=== PATIENT | male | born 1960 | race Caucasian/White ===

== ENCOUNTER 2024-09-14 10:55 | Outpatient (REF) | payer BC, SELFPAY ==
--- OUTSIDE RECORDS SUMMARY | 2024-09-14 13:12 | XMS_ITS | Continuity of Care Document ---
Author Organization [facility] Address [address] [place] [phone]- Care Team Providers Care Postal Supervisor Name Role Phone Bart Hoffman DO Primary Care Physician Encounter [facility] Date(s): 07/24/24 - 08/23/24 [facility] [address] [place] [id number] Attending Physician: Eliezer Byrne Admitting Physician: Eliezer Byrne Referring Physician: Eliezer Byrne Encounter Type: Triage Allergies, Adverse Reactions, Alerts Substance Criticality Severity Reaction Reaction Severity Status ciprofloxacin Ankle pain and edema Active Immunizations Given and Recorded Vaccine Date Status Refusal Reason SARS-CoV-2(COVID-19)mRNA-LNP vac([id number]) 07/14/24 Recorded SARS-CoV-2(COVID-19)mRNA-LNP vac(unx409) 06/26/23 Recorded influenza virus vaccine, inactivated 06/19/24 Give n influenza virus vaccine, inactivated 07/31/23 Tito rded influenza virus vaccine, inactivated 05/30/22 Tito rded influenza virus vaccine, inactivated 06/06/21 Tito rded influenza virus vaccine, inactivated 06/05/20 Tito rded influenza virus vaccine, inactivated 05/25/18 Tito rded influenza virus vaccine, inactivated 05/25/17 Tito rded influenza virus vaccine, inactivated 08/06/16 Tito rded influenza virus vaccine, inactivated 08/12/15 Tito rded RSV vaccine, preF A-preF B, recombinant 09/21/23 R ecorded pneumococcal 20-valent conjugate vaccine 09/16/23 Given [id number] bivalent booster vax 06/22/22 Recorded SARS-CoV-2 (COVID-19) mRNA-1273 vaccine 12/12/21 R ecorded SARS-CoV-2 (COVID-19) mRNA BNT-162b2 vac 05/20/21 Recorded SARS-CoV-2 (COVID-19) mRNA BNT-162b2 vac 11/08/20 Recorded SARS-CoV-2 (COVID-19) mRNA BNT-162b2 vac 10/16/20 Recorded Influenza Virus Vaccine (oldterm) 06/26/19 Recorde d zoster vaccine, inactivated 09/18/18 Recorded zoster vaccine, inactivated 05/25/18 Recorded Problem List Condition Confirmation Course Effective Dates Status H ealth Status Informant Asthma Confirmed Active Balanitis Confirmed Active Benign essential hypertension Confirmed Active Benign prostatic hyperplasia Confirmed Active Coronary artery calcification seen on CT scan Confirmed Active Cellulitis of leg Confirmed Active Chronic kidney disease stage 2 Confirmed Active Renal cyst Confirmed Active 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 Dizziness Confirmed Active Fatigue Confirmed Active Gastroparesis syndrome Confirmed Active Vivi's thyroiditis Confirmed Active Hx of colonic polyp Confirmed Active Hyperlipidemia Confirmed Active Nocturnal hypoxia Confirmed Active Immunization due Confirmed Active Impotence of organic origin Confirmed Active Insomnia Confirmed Active Legal blindness [place] Confirmed Active Long-term current use of insulin Confirmed Active Necrobiosis lipoidica Confirmed Active Nonproliferative diabetic retinopathy Confirmed Active Obese class I Confirmed Active Obesity Confirmed Active Osteoarthritis of right knee Confirmed Active Well adult exam Confirmed Active Prostate cancer screening Confirmed Active Peripheral edema Confirmed Active Peripheral nerve disease Confirmed Active Spinal stenosis Confirmed Active Stasis dermatitis of right lower extremity due to peripheral venous hypertension Confirmed Active Syringomyelia Confirmed Active Type 1 diabetes mellitus Confirmed Active Diabetes type I Confirmed Active Varicose vein of leg Confirmed Active Venous insufficiency Confirmed Active Vertigo Confirmed Active Social History Social History Type Response Smoking Status Former smoker; Tobac co user in household: No entered on: 06/17/18 Sex Sex Representation Male (finding) Patient Care team information Care Team Personnel Name: Janice Horne RN Position: [facility] RN Member Role: Primary Care Nurse Name: Pati Saenz RN Position: [facility] RN Member Role: Primary Care Nurse Name: Oxana Guzman RN Position: [facility] RN Member Role: Primary Care Nurse Name: Bart Hoffman DO Position: [facility] Physician - Primary Care Member Role: PCP Address: [address] [place] [phone] Telecom: Name: Mary Quesada RN Position: [facility] RN Member Role: Primary Care Nurse Name: Belkys Swenson RN Position: [facility] ED RN W/OE and Tasks Member Role: Primary Care Nurse Care Team Related Persons Name: JASON MONTANEZ Insurance Providers Guarantor name: WILL LISSETH [facility] Plan Information #: 1 Payer: [employer] Member Number: NA Policy Number: NA Group Number: NA
--- OUTSIDE RECORDS SUMMARY | 2024-09-14 13:12 | XMS_ITS | Continuity of Care Document ---
Author Organization [facility] Address [address] [place] [address]- Care Team Providers Care Cashier Payments Received Name Role Phone Bart Hoffman DO Primary Care Physician Encounter [facility] [id number] Date(s): 07/11/24 - 09/06/24 [facility] [address] [place], [place] [address] Attending Physician: Bart Hoffman DO Referring Physician: Home Boudreaux MD Encounter Type: Pre Office Visit Allergies, Adverse Reactions, Alerts Substance Criticality Severity Reaction Reaction Severity Status ciprofloxacin Ankle pain and edema Active Immunizations Given and Recorded Vaccine Date Status Refusal Reason SARS-CoV-2(COVID-19)mRNA-LNP vac(mba209) 07/14/24 Recorded SARS-CoV-2(COVID-19)mRNA-LNP vac(uvt293) 06/26/23 Recorded influenza virus vaccine, inactivated 06/19/24 [...] ecorded pneumococcal 20-valent conjugate vaccine 09/16/23 Given [id number] bivalent booster vax 06/22/22 Recorded SARS-CoV-2 (COVID-19) mRNA-1273 vaccine 12/12/21 R ecorded SARS-CoV-2 (COVID-19) mRNA BNT-162b2 vac 05/20/21 Recorded SARS-CoV-2 (COVID-19) mRNA BNT-162b2 vac 11/08/20 Recorded SARS-CoV-2 (COVID-19) mRNA BNT-162b2 vac 10/16/20 Recorded Influenza Virus Vaccine (oldterm) 06/26/19 Recorde d zoster vaccine, inactivated 09/18/18 Recorded zoster vaccine, inactivated 05/25/18 Recorded Medications amLODIPine 10 mg oral tablet See Instructions, 0.5mg tablet By Mouth Daily, # 45 tablet, Refills 0, Tot. Refills 0, Maintenance,04/28/23 4:47:00 PM EDT, Instructions Replace Required Details, Do Not Route, Partial fill upon patient request if the prescription is for a schedule II opioid drug. Start Date: 04/28/23 Status: Ordered Quantity: 45.0 Unit: tablet Repeat number: 1 Indication: Essential (primary) hypertension aspirin 81 mg oral delayed release tablet 81 mg, 1, tablet, By Mouth, Daily at bedtime, # 30 tablet, Refills 0, Maintenance, 10/11/19 8:59:00 PM EST Start Date: 10/11/19 Status: Ordered Quantity: 30.0 Unit: tablet Repeat number: 1 chlorthalidone 25 mg oral tablet 25 mg, 1, tablet, By Mouth, Daily, # 90 tablet, Refills 0, Tot. Refills 0, Maintenance, 11/26/21 6:53:00 AM EDT, Do Not Route, Partial fill upon patient request if the prescription is for a schedule IIopioid drug. Start Date: 11/26/21 Status: Ordered Quantity: 90.0 Unit: tablet Repeat number: 1 clonazePAM 0.5 mg oral tablet 1 tablet = 0.5 mg, By Mouth, 2 times a day, # 120 tablet, 0 Refills, Soft Stop, 06/13/24 8:19:00 AMEDT, [facility] #[id number], 175, cm, 03/20/24 11:18:00 EDT, Height, 105.8, kg, 08/29/23 14:31:00 EST, Dry Weight Start Date: 06/13/24 Status: Ordered Quantity: 120.0 Unit: tablet Repeat number: 1 Combigan 0.2%-0.5% ophthalmic solution INSTILL 1 DROP IN BOTH EYES TWICE DAILY DIRECTED Start Date: 12/10/22 Status: Ordered Repeat number: 1 Crestor 40 mg oral tablet 1 tablet = 40 mg, By Mouth, Daily at bedtime, # 30 tablet, 0 Refills, Maintenance, 04/28/23 4:48:00 PM EDT, Tablet, Partial fill upon patient request if the prescription is for a schedule II opioid drug. Start Date: 04/28/23 Status: Ordered Quantity: 30.0 Unit: tablet Repeat number: 1 Indication: Essential (primary) hypertension folic acid 1 mg oral tablet See Instructions, Take 1 tablet with breakfast every morning, # 30 tablet, Refills 6, Tot. Refills 6, Maintenance, 08/26/24 11:11:00 AM EST, Instructions Replace Required Details, [id number], Partial fill upon patient request if the prescription is for a schedule II opioid drug., 175, cm, 08/26/24 10:27:00 EST, Height, 100, kg, 08/17/24 17:29:00 EST, Dry Weight Start Date: 08/26/24 Status: Ordered Quantity: 30.0 Unit: tablet Repeat number: 7 free style star 3 sensors free style star 3 sensors, See Instructions, # 6 each, Refills 3, Tot. Refills 3, Maintenance, type 1 diabetes mellitus with hyperglycemia icd 10:E10.65, 01/10/24 6:00:00 PM EDT, [facility], [facility], 175, cm, 12/23/23 10:35:00 EDT, Height, 105.8, kg, 08/29/23 14:31:00 EST, Dry Weight Start Date: 01/10/24 Status: Ordered Quantity: 6.0 Unit: each Repeat number: 4 Freestyle Star 3 Roann Freestyle Star 3 Roann, See Instructions, # 1 each, Refills 0, Tot. Refills 0, Maintenance, use as directed for Type 1 Diabetes E10.9, 04/05/24 5:44:00 PM EDT, Supply, 175, cm, 03/20/24 11:18:00 EDT, Height, 105.8, kg, 08/29/23 14:31:00 EST, Dry Weight Start Date: 04/05/24 Status: Ordered Quantity: 1.0 Unit: each Repeat number: 1 Freestyle Star Sensor See Instructions, # 2 each, Refills 0, Tot. Refills 0, Maintenance, e11.9 three boxes, two each box, 01/06/24 6:09:00 PM EDT, Supply, 175, cm, 12/23/23 10:35:00 EDT, Height, 105.8, kg, 08/29/23 14:31:00 EST, Dry Weight Start Date: 01/06/24 Status: Ordered Quantity: 2.0 Unit: each Repeat number: 1 gabapentin 300 mg oral capsule 300 mg, 1, capsule, By Mouth, 3 times a day, # 90 capsule, Refills 0, Tot. Refills 0, Maintenance, 08/22/24 3:46:00 PM EST, Route to Pharmacy Electronically, [facility]/pharmacy #[id number], Partial fill upon patient request if the prescription is for a schedule II opioid drug., 175, cm, 08/22/24 15:04:00 EST, Height, 100, kg, 08/17/24 17:29:00 EST, Dry Weight Start Date: 08/22/24 Status: Ordered Quantity: 90.0 Unit: capsule Repeat number: 1 Insulin Syringe, BD Ultra-Fine 0.3 cc 31 G x 8 mm (5/16in) UNASSIGNED, 4 Refill(s),, 11/29/18 3:10:00 PM EDT, Compound Start Date: 11/29/18 Status: Ordered Repeat number: 1 latanoprost 0.005% ophthalmic solution 1 drops, Eyes, Both, Daily at bedtime, # 3 mL, 0 Refills, Maintenance, 10/10/19 7:28:00 PM EST, Ophth Solution Start Date: 10/10/19 Status: Ordered Quantity: 3.0 Unit: mL Repeat number: 1 levothyroxine 0.05 mg oral tablet 1 tablet, By Mouth, Daily, EXCEPT ON Wednesday TABLETS BY MOUTH, # 90 tablet, 3 Refills, Maintenance, 11/01/23 3:11:00 PM EDT, [facility] #[id number], 175, cm, 09/16/23 14:27:00 EST, Height, 105.8, kg, 08/29/23 14:31:00 EST, Dry Weight Start Date: 11/01/23 Status: Ordered Quantity: 90.0 Unit: tablet Repeat number: 4 levothyroxine 0.05 mg oral tablet 1 tablet, By Mouth, Daily, EXCEPT ON Wednesday TABLETS BY MOUTH, # 96 tablet, 2 Refills, Maintenance, 07/06/24 5:18:00 PM EST, [facility] #[id number], 175, cm, 06/26/24 8:05:00 EST, Height, 107, kg, 06/18/24 12:28:00 EDT, Dry Weight Start Date: 07/06/24 Status: Ordered Quantity: 96.0 Unit: tablet Repeat number: 3 levothyroxine 0.05 mg oral tablet 1 tablet, By Mouth, Daily, EXCEPT ON Wednesday TABLETS BY MOUTH, # 96 tablet, 2 Refills, Maintenance, 07/06/24 8:28:00 AM EST, [facility] #[id number], 175, cm, 06/26/24 8:05:00 EST, Height, 107, kg, 06/18/24 12:28:00 EDT, Dry Weight Start Date: 07/06/24 Status: Ordered Quantity: 96.0 Unit: tablet Repeat number: 3 losartan 100 mg oral tablet 1 tablet = 100 mg, By Mouth, Daily at bedtime, # 90 tablet, 0 Refills, Maintenance, 07/26/24 12:59:00 PM EST, Tablet, [facility] #[id number], Partial fill upon patient request if the prescriptionis for a schedule II opioid drug., 175, cm, 07/24/24 14:01:00 EST, Height, 105.6, kg, 07/19/24 7:13:00 EST, Dry Weight Start Date: 07/26/24 Status: Ordered Quantity: 90.0 Unit: tablet Repeat number: 1 methotrexate 2.5 mg oral tablet See Instructions, take 6 tablets once a week at bedtime, # 30 tablet, 6 Refills, Maintenance, 08/26/24 11:11:00 AM EST, [facility] #[id number], Partial fill upon patient request if the prescription is for a schedule II opioid drug., 175, cm, 08/26/24 10:27:00 EST, Height, 100, kg, 08/17/24 17:29:00 EST, Dry Weight Start Date: 08/26/24 Status: Ordered Quantity: 30.0 Unit: tablet Repeat number: 7 NovoLOG 100 units/mL subcutaneous solution See Instructions, sliding scale 8-10 units sc before a meal, # 30 mL, 2 Refills, Maintenance, 08/18/22 10:18:00 AM EST, Solution, [facility] #[id number], Partial fill upon patient request if theprescription is for a schedule II opioid drug., 175, cm, 08/18/22 10:05:00 EST, Height Start Date: 08/18/22 Status: Ordered Quantity: 30.0 Unit: mL Repeat number: 3 One Touch Ultra Test Strips See Instructions, # 300 each, Refills 3, Tot. Refills 3, Maintenance, To test blood sugar 3 times aday for Type 2 Diabetes E11.9, 03/02/24 12:54:00 PM EDT, 90 DAY SUPPLY, Supply, 175, cm, 12/23/23 10:35:00 EDT, Height, 105.8, kg, 08/29/23 14:31:00 EST, Dry Weight Start Date: 03/02/24 Stop Date: 06/30/24 Status: Ordered Quantity: 300.0 Unit: each Repeat number: 4 Pen [place], 31 G x 8 mm BD Ultra Fine III See Instructions, # 300 each, Refills 5, Tot. Refills 5, Maintenance, use as directed for Type 2 Diabetes Mellitus use for insulin pen injections once a day, 07/29/22 1:56:00 PM EST, Supply, 173, cm, 11/26/21 13:11:00 EDT, Height Start Date: 07/29/22 Stop Date: 01/25/23 Status: Ordered Quantity: 300.0 Unit: each Repeat number: 6 predniSONE 5 mg oral tablet 2 tablet = 10 mg, By Mouth, Daily, # 60 tablet, 0 Refills, Maintenance, 08/26/24 11:11:00 AM EST, [facility] #[id number], Partial fill upon patient request if the prescription is for a schedule IIopioid drug., 175, cm, 08/26/24 10:27:00 EST, Height, 100, kg, 08/17/24 17:29:00 EST, Dry Weight Start Date: 08/26/24 Status: Ordered Quantity: 60.0 Unit: tablet Repeat number: 1 sildenafil 100 mg oral tablet See Instructions, TAKE 1 TABLET BY MOUTH DAILY 1 HOUR BEFORE SEXUAL ACTIVITY, # 8 tablet, 2 Refills, 09/21/21 6:17:00 AM EST, [facility] #[id number], 173, cm, 07/30/21 15:34:00 EST, Height, 109.2, kg, 10/10/19 18:00:00 EST, Dry Weight Start Date: 09/21/21 Status: Ordered Quantity: 8.0 Unit: tablet Repeat number: 3 test daily test daily, See Instructions, # 90 Unknown, Refills 0, Tot. Refills 0, Maintenance, Test daily, 06/07/20 9:03:00 AM EDT, Supply, 173, cm, 12/28/19 10:32:00 EDT, Height, 109.2, kg, 10/10/19 18:00:00 EST, Dry Weight Start Date: 06/07/20 Status: Ordered Quantity: 90.0 Unit: Unknown Repeat number: 1 Tresiba FlexTouch 200 units/mL subcutaneous solution = 22 units, Subcutaneous Injection, Daily at bedtime, rotate injection sites, # 9 mL, 0 Refills, Maintenance, 08/29/23 1:28:00 PM EST, Solution, Partial fill upon patient request if the prescription isfor a schedule II opioid drug. Start Date: 08/29/23 Status: Ordered Quantity: 9.0 Unit: mL Repeat number: 1 Tylenol Extra Strength 500 mg oral tablet 2 tablet = 1,000 mg, By Mouth, Every 6 hours, PRN for pain, for 360 days, # 100 tablet, 0 Refills, Acute 07/14/25 8:52:00 AM EST, 07/19/24 8:52:00 AM EST, Tablet, [facility] #[id number], Partialfill upon patient request if the prescription is for a schedule II opioid drug., 173, cm, 07/19/24 7:13:00 EST, Height, 105.6, kg, 07/19/24 7:13:00 EST, Dry Weight Start Date: 07/19/24 Stop Date: 07/14/25 Status: Ordered Quantity: 100.0 Unit: tablet Repeat number: 1 Problem List Condition Confirmation Course Effective Dates [...] Team Personnel Name: Janice Horne RN Position: [facility] RN Member Role: Primary Care Nurse Name: Pati Saenz RN Position: S RN Member Role: Primary Care Nurse Name: Oxana Guzman RN Position: S RN Member Role: Primary Care Nurse Name: Bart Hoffman DO Position: [facility] Physician - Primary Care Member Role: PCP Address: [address] [place] [address] [place], [place] [address] Telecom: Name: Mary Quesada RN Position: S RN Member Role: Primary Care Nurse Name: Belkys Swenson RN Position: [facility] ED RN W/OE and Tasks Member Role: Primary Care Nurse Care Team Related Persons Name: JASON MONTANEZ Insurance Providers Guarantor name: WILL MONTANEZ [facility] Information #: 1 Payer: [employer] Member Number: [id number] Policy Number: NA Group Number: [id number] Health Plan Information #: 2 Payer: [employer] [facility] ELECT Member Number: [id number] Policy Number: NA Group Number: NA
--- OUTSIDE RECORDS SUMMARY | 2024-09-14 13:12 | XMS_ITS | Continuity of Care Document ---
Author Organization [facility] Address [address] [place] [id number]- Care Team Providers Care Help Desk Supervisor Name Role Phone Dalton Bart Dutton Primary Care Physician Encounter [facility] Date(s): 08/10/24 - 09/09/24 [facility] [address] [place] [address]- Attending Physician: Eliezer Byrne Admitting Physician: Eliezer Byrne Referring Physician: AdmtrEliezer Encounter Type: Triage Allergies, Adverse Reactions, Alerts Substance Criticality Severity Reaction Reaction Severity Status ciprofloxacin Ankle pain and edema Active Immunizations Given and Recorded Vaccine Date Status Refusal Reason SARS-CoV-2(COVID-19)mRNA-LNP vac(lle876) 07/14/24 Recorded SARS-CoV-2(COVID-19)mRNA-LNP vac(uan245) 06/26/23 Recorded influenza virus vaccine, inactivated 06/19/24 [...] ecorded pneumococcal 20-valent conjugate vaccine 09/16/23 Given [id number] bivalent booster vax 06/22/22 Recorded SARS-CoV-2 (COVID-19) [...] 0 Refills, Soft Stop, 06/13/24 8:19:00 AMEDT, [facility] #[id number], 175, cm, 03/20/24 11:18:00 EDT, Height, 105.8, [...] Replace Required Details, Route to Pharmacy Electronically, [email or web address] #[id number], Partial fill upon patient request if the [...] each Repeat number: 4 Freestyle Star 3 Mcclure Freestyle Star 3 [place]cl[place], See Instructions, # 1 each, Refills 0, [...] 3:46:00 PM EST, Route to Pharmacy Electronically, [facility]/pharmacy #[id number], Partial fill upon patient request if the prescription is for a schedule II opioid drug., 175, cm, 08/22/24 15:04:00 EST, Height, 100, kg, 08/17/24 17:29:00 EST, Dry Weight Start Date: 08/22/24 Status: Ordered Quantity: 90.0 Unit: capsule Repeat number: 1 Insulin Syringe, BD Ultra-Fine 0.3 cc 31 G x 8 mm (516in) UNASSIGNED, 4 Refill(s),, 11/29/18 3:10:00 PM EDT, [...] 3 Refills, Maintenance, 11/01/23 3:11:00 PM EDT, [facility] #[id number], 175, cm, 09/16/23 14:27:00 EST, Height, 105.8, kg, 08/29/23 14:31:00 EST, Dry Weight Start Date: 11/01/23 Status: Ordered Quantity: 90.0 Unit: tablet Repeat number: 4 levothyroxine 0.05 mg oral tablet 1 tablet, By Mouth, Daily, EXCEPT ON Wednesday TABLETS BY MOUTH, # 96 tablet, 2 Refills, Maintenance, 07/06/24 5:18:00 PM EST, [facility] #[id number], 175, cm, 06/26/24 8:05:00 EST, Height, 107, kg, 06/18/24 12:28:00 EDT, Dry Weight Start Date: 07/06/24 Status: Ordered Quantity: 96.0 Unit: tablet Repeat number: 3 levothyroxine 0.05 mg oral tablet 1 tablet, By Mouth, Daily, EXCEPT ON Wednesday TABLETS BY MOUTH, # 96 tablet, 2 Refills, Maintenance, 07/06/24 8:28:00 AM EST, [facility] #[id number], 175, cm, 06/26/24 8:05:00 EST, Height, 107, kg, 06/18/24 12:28:00 EDT, Dry Weight Start Date: 07/06/24 Status: Ordered Quantity: 96.0 Unit: tablet Repeat number: 3 losartan 100 mg oral tablet 1 tablet = 100 mg, By Mouth, Daily at bedtime, # 90 tablet, 0 Refills, Maintenance, 07/26/24 12:59:00 PM EST, Tablet, [facility] #[id number], Partial fill upon patient request if the [...] 6 Refills, Maintenance, 08/26/24 11:11:00 AM EST, [facility] #[id number], Partial fill upon patient request if the [...] Refills, Maintenance, 08/18/22 10:18:00 AM EST, Solution, [facility] #[id number], Partial fill upon patient request if theprescription [...] 300.0 Unit: each Repeat number: 4 Pen Cofield, 31 G x 8 mm BD Ultra [...] 0 Refills, Maintenance, 08/26/24 11:11:00 AM EST, [facility] #[id number], Partial fill upon patient request if the [...] tablet, 2 Refills, 09/21/21 6:17:00 AM EST, [facility] #[id number], 173, cm, 07/30/21 15:34:00 EST, Height, 109.2, [...] AM EST, 07/19/24 8:52:00 AM EST, Tablet, [facility] #[id number], Partialfill upon patient request if the prescription [...] Team Personnel Name: Janice Horne RN Position: [facility] RN Member Role: Primary Care Nurse Name: Pati Saenz RN Position: S RN Member Role: Primary Care Nurse Name: Oxana Guzman RN Position: S RN Member Role: Primary Care Nurse Name: Bart Hoffman DO Position: [facility] Physician - Primary Care Member Role: PCP Address: [address] [place] [id number] Telecom: Name: Mary Quesada RN Position: S RN Member Role: Primary Care Nurse Name: Belkys Swenson RN Position: [facility] ED RN W/OE and Tasks Member Role: Primary Care Nurse Care Team Related Persons Name: JASON MONTANEZ Insurance Providers Guarantor name: WILL MONTANEZ [facility] Plan Information #: 1 Payer: [employer] Member Number: NA Policy Number: NA Group Number: NA
--- OUTSIDE RECORDS SUMMARY | 2024-09-14 13:12 | XMS_ITS | Continuity of Care Document ---
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 Phone Bart Hoffman DO Primary Care Physician [id number] Date(s): 08/07/24 - 09/09/24 [facility] [address] [place], [place] [address] Attending Physician: Mandy Castañeda NP Referring Physician: Home Boudreaux MD Encounter Type: Pre Office Visit Allergies, Adverse Reactions, Alerts Substance Criticality Severity Reaction Reaction Severity Status ciprofloxacin Ankle pain and edema Active Immunizations Given and Recorded Vaccine Date Status Refusal Reason SARS-CoV-2(COVID-19)mRNA-LNP vac([id number]) 07/14/24 Recorded SARS-CoV-2(COVID-19)mRNA-LNP vac([id number]) 06/26/23 Recorded influenza virus vaccine, inactivated 06/19/24 [...] ecorded pneumococcal 20-valent conjugate vaccine 09/16/23 Given [id number] bivalent booster vax 06/22/22 Recorded SARS-CoV-2 (COVID-19) [...] 0 Refills, Soft Stop, 06/13/24 8:19:00 AMEDT, [facility] #[id number], 175, cm, 03/20/24 11:18:00 EDT, Height, 105.8, [...] Replace Required Details, Route to Pharmacy Electronically, [facility] #[id number], Partial fill upon patient request if the [...] each Repeat number: 4 [facility] [place] [facility] [place], See Instructions, # 1 each, Refills 0, [...] 3:46:00 PM EST, Route to Pharmacy Electronically, [facility]/pharmacy #[id number], Partial fill upon patient request if [...] 3 Refills, Maintenance, 11/01/23 3:11:00 PM EDT, [facility] #[id number], 175, cm, 09/16/23 14:27:00 EST, Height, 105.8, kg, 08/29/23 14:31:00 EST, Dry Weight Start Date: 11/01/23 Status: Ordered Quantity: 90.0 Unit: tablet Repeat number: 4 levothyroxine 0.05 mg oral tablet 1 tablet, By Mouth, Daily, EXCEPT ON Wednesday TABLETS BY MOUTH, # 96 tablet, 2 Refills, Maintenance, 07/06/24 5:18:00 PM EST, [facility] #[id number], 175, cm, 06/26/24 8:05:00 EST, Height, 107, kg, 06/18/24 12:28:00 EDT, Dry Weight Start Date: 07/06/24 Status: Ordered Quantity: 96.0 Unit: tablet Repeat number: 3 levothyroxine 0.05 mg oral tablet 1 tablet, By Mouth, Daily, EXCEPT ON Wednesday TABLETS BY MOUTH, # 96 tablet, 2 Refills, Maintenance, 07/06/24 8:28:00 AM EST, [facility] #[id number], 175, cm, 06/26/24 8:05:00 EST, Height, 107, kg, 06/18/24 12:28:00 EDT, Dry Weight Start Date: 07/06/24 Status: Ordered Quantity: 96.0 Unit: tablet Repeat number: 3 losartan 100 mg oral tablet 1 tablet = 100 mg, By Mouth, Daily at bedtime, # 90 tablet, 0 Refills, Maintenance, 07/26/24 12:59:00 PM EST, Tablet, [facility] #[id number], Partial fill upon patient request if the [...] 6 Refills, Maintenance, 08/26/24 11:11:00 AM EST, [facility] #[id number], Partial fill upon patient request if the [...] Refills, Maintenance, 08/18/22 10:18:00 AM EST, Solution, [facility] #[id number], Partial fill upon patient request if theprescription [...] 300.0 Unit: each Repeat number: 4 Pen Be[place], 31 G x 8 mm BD Ultra [...] 0 Refills, Maintenance, 08/26/24 11:11:00 AM EST, [facility] #[id number], Partial fill upon patient request if the [...] tablet, 2 Refills, 09/21/21 6:17:00 AM EST, [facility] #[id number], 173, cm, 07/30/21 15:34:00 EST, Height, 109.2, [...] AM EST, 07/19/24 8:52:00 AM EST, Tablet, [facility] #[id number], Partialfill upon patient request if the prescription [...] Team Personnel Name: Janice Horne RN Position: [facility] RN Member Role: Primary Care Nurse Name: Pati Saenz RN Position: S RN Member Role: Primary Care Nurse Name: Oxana Guzman RN Position: S RN Member Role: Primary Care Nurse Name: Bart Hoffman DO Position: [facility] Physician - Primary Care Member Role: PCP Address: [address] [place] [id number] Telecom: Name: Mary Quesada RN Position: S RN Member Role: Primary Care Nurse Name: Belkys Swenson RN Position: [facility] ED RN W/OE and Tasks Member Role: Primary Care Nurse Care Team Related Persons Name: JASON MONTANEZ Insurance Providers Guarantor name: WILL MONTANEZ Health Plan Information #: 1 Payer: [facility] E[employer] Member Number: [id number] Policy Number: NA Group Number: [id number] Health Plan Information #: 2 Payer: MEDICARE PART B OUTPT Member Number: [id number] Policy Number: NA Group Number: NA
[2024-09-14 15:10] LABS: Erythrocyte Sedimentation Rate 14 MM/HR (0-15)
== END 2024-09-14 10:56 | disposition home or self-care (01) ==
LOC: HO.LAB 10:55
PROVIDERS: PCP Family Medicine; Visit Provider Psychiatry & Neurology Neurology
DX: R42 Dizziness and giddiness (principal); M35.3 Polymyalgia rheumatica
CPT/HCPCS: 36415; 85652; 86140